=== PATIENT | male | born 1990 | race Caucasian/White ===

== ENCOUNTER 2018-04-07 10:24 | Emergency (ER) | payer BC ==
--- NOTE | 2018-04-07 12:15 | ER ---
Nurse's Notes [facility] Name: Sanjeev Dumont Age: 27 yrs Sex: Male : 1990 Arrival Date: 04/07/2018 Time: 10:28 Bed 12 Private MD: None, None Diagnosis: Person with feared health complaint in whom no diagnosis is made Presentation: 04/07 10:34 Presenting complaint: Patient states: Pt works outside in the heat and stated that he sv got overheated. His work is requiring a note to return to work Monday. Pt reports no symptoms today. Transition of care: patient was not received from another setting of care. Onset of symptoms was April 06, 2018. 10:34 Method Of Arrival: Ambulatory sv 10:34 Acuity: LOLA 5 sv 10:35 Risk Assessment: Do you want to hurt yourself or someone else? Patient reports no sv desire to harm self or others. Initial Sepsis Screen: Does the patient meet any 2 criteria? No. Patient's initial sepsis screen is negative. Does the patient have a suspected source of infection? No. Patient's initial sepsis screen is negative. Care prior to arrival: None. Triage Assessment: 10:34 General: Appears in no apparent distress. comfortable, Behavior is calm, cooperative, sv appropriate for age. Pain: Denies pain. EENT: No signs and/or symptoms were reported regarding the EENT system. Neuro: Level of Consciousness is awake, alert, obeys commands, Oriented to person, place, time, situation, Moves all extremities. Full function Gait is steady, Speech is normal. Cardiovascular: Patient's skin is warm and dry. Respiratory: Respiratory effort is even, unlabored, Respiratory pattern is regular, symmetrical, Denies shortness of breath. GI: Reports tolerance of fluids, tolerance of food, Patient currently denies nausea, vomiting. : No signs and/or symptoms were reported regarding the genitourinary system. Derm: Skin is pink, warm \T\ dry. Musculoskeletal: No signs and/or symptoms reported regarding the musculoskeletal system. Historical: - Allergies: 10:35 No Known Allergies; sv - Home Meds: 10:35 None [Active]; sv - PMHx: 10:35 None; sv - PSHx: 10:35 None; sv - Immunization history:: Adult Immunizations up to date. - Social history:: Smoking status: Patient uses tobacco products, smokes one-half pack cigarettes per day. - Ebola Screening: : No symptoms or risks identified at this time. Screenin:45 Abuse screen: Denies threats or abuse. Denies injuries from another. Nutritional sv screening: No deficits noted. Tuberculosis screening: No symptoms or risk factors identified. Fall Risk None identified. Assessment: 11:45 Reassessment: Patient appears in no apparent distress at this time. No changes from sv previously documented assessment. Patient and/or family updated on plan of care and expected duration. Pain level reassessed. Patient is alert, oriented x 3, equal unlabored respirations, skin warm/dry/pink. See triage assessment. Vital Signs: 10:35 BP 128 / 86; Pulse 74; Resp 18; Pulse Ox 98% ; Weight 88.45 kg; Height 6 ft. 2 in. sv (187.96 cm); Pain 0/10; 10:35 Body Mass Index 25.04 (88.45 kg, 187.96 cm) sv ED Course: 10:28 Patient arrived in ED. sb2 10:29 None, None is Private Physician. sb2 10:35 Triage completed. sv 10:36 Arm band placed on left wrist. Patient placed in an internal wait recliner, Patient sv notified of wait time. 11:45 Logan Arias NP is PHCP. pm1 11:45 Fahad Velasco MD is Attending Physician. pm1 11:45 Patient has correct armband on for positive identification. Call light in reach. Door sv closed. 12:29 No provider procedures requiring assistance completed. Patient did not have IV access ss during this emergency room visit. Administered Medications: No medications were administered Outcome: 12:15 Discharge ordered by . pm1 12:29 Discharged to home ambulatory. ss 12:29 Condition: good 12:29 Discharge instructions given to patient, Instructed on discharge instructions, follow up and referral plans. medication usage, Demonstrated understanding of instructions, follow-up care, medications. 12:30 Patient left the ED. ss Signatures: Keyanna Figueroa RN RN Kayla Arndt RN RN Logan Arias NP HOUSEKEEPING AIDE pm1 Cindy Villalobos sb2
--- NOTE | 2018-04-07 12:16 | EDPHYS ---
Physician Documentation [facility] Name: Sanjeev Dumont Age: 27 yrs Sex: Male : 1990 Arrival Date: 04/07/2018 Time: 10:28 Bed 12 Private MD: None, None ED Physician Fahad Velasco HPI: 04/07 12:14 This 27 yrs old Male presents to ER via Ambulatory with complaints of pm1 Overheated At Work Yesterday. 12:14 Onset: The symptoms/episode began/occurred yesterday. Patient reports that he felt pm1 overheated yesterday at work. Patient was working in the sun as a mechanic and welder. Patient went home, rested and drank water. Patient without any complaints today; he is just requesting a return to work form. Patient went to urgent care prior to ER arrival and he was directed to come here for evaluation . Historical: - Allergies: 10:35 No Known Allergies; sv - Home Meds: 10:35 None [Active]; sv - PMHx: 10:35 None; sv - PSHx: 10:35 None; sv - Immunization history:: Adult Immunizations up to date. - Social history:: Smoking status: Patient uses tobacco products, smokes one-half pack cigarettes per day. - Ebola Screening: : No symptoms or risks identified at this time. ROS: 12:14 Constitutional: Negative for fever, chills, and weight loss, Eyes: Negative for injury, pm1 pain, redness, and discharge, ENT: Negative for injury, pain, and discharge, Neck: Negative for injury, pain, and swelling, Cardiovascular: Negative for chest pain, palpitations, and edema, Respiratory: Negative for shortness of breath, cough, wheezing, and pleuritic chest pain, Abdomen/GI: Negative for abdominal pain, nausea, vomiting, diarrhea, and constipation, Back: Negative for injury and pain, : Negative for injury, bleeding, discharge, and swelling, MS/Extremity: Negative for injury and deformity, Skin: Negative for injury, rash, and discoloration, Neuro: Negative for headache, weakness, numbness, tingling, and seizure. Exam: 12:14 Constitutional: This is a well developed, well nourished patient who is awake, alert, pm1 and in no acute distress. Head/Face: Normocephalic, atraumatic. Neck: Trachea midline, no thyromegaly or masses palpated, and no cervical lymphadenopathy. Supple, full range of motion without nuchal rigidity, or vertebral point tenderness. No Meningismus. Chest/axilla: Normal chest wall appearance and motion. Nontender with no deformity. No lesions are appreciated. Cardiovascular: Regular rate and rhythm with a normal S1 and S2. No gallops, murmurs, or rubs. Normal PMI, no JVD. No pulse deficits. Respiratory: Lungs have equal breath sounds bilaterally, clear to auscultation and percussion. No rales, rhonchi or wheezes noted. No increased work of breathing, no retractions or nasal flaring. Abdomen/GI: Soft, non-tender, with normal bowel sounds. No distension or tympany. No guarding or rebound. No evidence of tenderness throughout. Back: No spinal tenderness. No costovertebral tenderness. Full range of motion. Skin: Warm, dry with normal turgor. Normal color with no rashes, no lesions, and no evidence of cellulitis. MS/ Extremity: Pulses equal, no cyanosis. Neurovascular intact. Full, normal range of motion. 12:14 Neuro: Orientation: is normal, Motor: is normal, moves all fours, Gait: is steady, at a normal pace, without difficulty. Vital Signs: 10:35 BP 128 / 86; Pulse 74; Resp 18; Pulse Ox 98% ; Weight 88.45 kg; Height 6 ft. 2 in. sv (187.96 cm); Pain 0/10; 10:35 Body Mass Index 25.04 (88.45 kg, 187.96 cm) sv MDM: 12:08 Patient medically screened. pm1 12:14 Data reviewed: vital signs. Data interpreted: Pulse oximetry: on room air is 98 %. pm1 Interpretation: normal. Counseling: I had a detailed discussion with the patient and/or guardian regarding: the historical points, exam findings, and any diagnostic results supporting the discharge/admit diagnosis, to return to the emergency department if symptoms worsen or persist or if there are any questions or concerns that arise at home. Administered Medications: No medications were administered Disposition: 19:05 Co-signature as Attending Physician, Fahad Velasco MD. Disposition: 04/07/18 12:15 Discharged to Home. Impression: Person with feared health complaint in whom no diagnosis is made. - Condition is Stable. - Discharge Instructions: Dehydration, Adult, Rehydration, Adult. - Work release form, Medication Reconciliation Form, Thank You Letter form. - Follow up: Private Physician; When: As needed. Follow up: Emergency Department; When: As needed. - Problem is new. - Symptoms are resolved. Signatures: Keyanna Figueroa RN RN Kayla Arndt RN RN ss Logan Arias NP [employer] SPECIALIST pm1 Fahad Velasco MD MD Corrections: (The following items were deleted from the chart) 12:30 12:15 04/07/2018 12:15 Discharged to Home. Impression: Person with feared health ss complaint in whom no diagnosis is made. Condition is Stable. Forms are Medication Reconciliation Form, Thank You Letter, Antibiotic Education, Prescription Opioid Use. Follow up: Private Physician; When: As needed. Follow up: Emergency Department; When: As needed. Problem is new. Symptoms are resolved. pm1
== END 2018-04-07 12:30 | disposition home or self-care (01) ==
LOC: ER 10:24
DX: Z71.1 Person with feared health complaint in whom no diagnosis is made (principal); F17.210 Nicotine dependence, cigarettes, uncomplicated
CPT/HCPCS: 99281